=== PATIENT | female | born 1970 | race Caucasian/White ===

== ENCOUNTER 2018-05-04 05:36 | Inpatient (IN) | payer BC ==
[2018-05-02 12:25] LABS: APPEARANCE,URINE CLEAR; BILIRUBIN,URINE NEGATIVE (NEGATIVE); COLOR,URINE YELLOW; GLUCOSE, URINE NEGATIVE (NEGATIVE); KETONES,URINE NEGATIVE (NEGATIVE); LEUKOCYTE ESTERASE,URINE NEGATIVE (NEGATIVE); NITRITE,URINE NEGATIVE (NEGATIVE); PROTEIN,URINE NEGATIVE (NEGATIVE); URINE SPECIFIC GRAVITY 1.011; UROBILINOGEN,URINE NEGATIVE mg/dL (<2.0)
--- NOTE | 2018-05-02 12:28 | RADIOLOGY REPORT (SQ) ---
EXAM DESCRIPTION: CHEST PA/LATERAL COMPLETED DATE/TIME: 05/02/2018 12:19 pm REASON FOR STUDY: PRE-OP COMPARISON: None. EXAM PARAMETERS: NUMBER OF VIEWS: two views TECHNIQUE: Digital Frontal and Lateral radiographic views of the chest acquired. RADIATION DOSE: NA LIMITATIONS: none FINDINGS: LUNGS AND PLEURA: No opacities, masses or pneumothorax. No pleural effusion. Mild biapica l pleural thickening/ scarring. MEDIASTINUM AND HILAR STRUCTURES: No masses or contour abnormalities. HEART AND VASCULAR STRUCTURES: Heart normal size. No evidence for failure. BONES: No acute findings. HARDWARE: None in the chest. OTHER: No other significant finding. IMPRESSION: No evidence of acute cardiopulmonary process. TECHNICAL DOCUMENTATION: JOB ID: [id number] [employer]- All Rights Reserved Reading location - IP/workstation name: [email or web address]
[2018-05-02 12:31] LABS: HEMATOCRIT 45.1 % (36.0-47.0); HEMOGLOBIN 15.4 g/dL (12.0-15.5); MEAN CORPUSCULAR HEMOGLOBIN 31.3 pg (27.0-33.4); MEAN CORPUSCULAR HGB CONC 34.2 g/dL (32.0-36.0); MEAN CORPUSCULAR VOLUME 92 fl (80-97); RED BLOOD COUNT 4.92 10^6/uL (3.72-5.28); RED CELL DISTRIBUTION WIDTH 13.5 % (11.5-14.0)
[2018-05-02 12:55] LABS: ANION GAP 12 (5-19); BLOOD UREA NITROGEN 12 mg/dL (7-20); CALCIUM 9.7 mg/dL (8.4-10.2); CARBON DIOXIDE 31 mmol/L (22-30); CHLORIDE 101 mmol/L (98-107); GLUCOSE 87 mg/dL (75-110); POTASSIUM 4.8 mmol/L (3.6-5.0); SODIUM 144.3 mmol/L (137-145)
[2018-05-02 13:33] LABS: PLATELET COUNT 278 10^3/uL (150-450)
--- NOTE | 2018-05-02 15:54 | EKG REPORT ---
SEVERITY:- BORDERLINE ECG - SINUS RHYTHM BORDERLINE T ABNORMALITIES, ANTERIOR LEADS : Confirmed by: Skip Nolan MD 02-May-2018 15:53:35
[2018-05-03 14:14] LABS: WHITE BLOOD COUNT 4.6 10^3/uL (4.0-10.5)
[2018-05-03 14:17] LABS: PATH REVIEW PATHOLOGIST REVIEWED
[~2018-05-04 05:36] MED LIST: CEFAZOLIN 1 GM/D5W RTU 1 GM/50 ML RTUPB IV ONE; CEFAZOLIN 1 GM/D5W RTU 1 GM/50 ML RTUPB IV PRN; LACTATED RINGERS 1000 ML IV PRN; LIDOCAINE 0.5% INJ-PF (5 MG/ML) 50 ML SDV SUBCUT PRN; RINGERS SOLUTION,LACTATED 1,000 ML IV PRN
[2018-05-04] MEDS ORDERED: HYDROMORPHONE HCL INJ/PF 2 MG/ML AMPULE ONE (06:58)
[2018-05-04] MEDS ORDERED: FENTANYL CITRATE INJ/PF 250 MCG/5 ML AMPULE ONE (06:58)
[2018-05-04] MEDS ORDERED: ACETAMINOPHEN 1,000 MG/100 ML RTUPB IV ONE (06:59)
[2018-05-04] MEDS ORDERED: PROPOFOL INJ 200 MG/20 ML VIAL IV ONE (06:59)
[2018-05-04] MEDS ORDERED: MIDAZOLAM 2 MG/2 ML INJ ONE (06:59)
[2018-05-04] MEDS ORDERED: BUPIVACAINE INJ/PF LIPOSOME/PF 266 MG/20 ML SDV ONE (07:13)
[2018-05-04] MEDS ORDERED: MEPERIDINE HCL/PF INJ 25 MG/1 ML DISP.SYRIN IV PRN (08:01)
[2018-05-04] MEDS ORDERED: DIPHENHYDRAMINE HCL 50 MG/ML VIAL IV PRN (08:01)
[2018-05-04] MEDS ORDERED: MORPHINE SULFATE 10 MG/ML INJ IV PRN (08:01)
[2018-05-04] MEDS ORDERED: FENTANYL CITRATE INJ/PF 100 MCG/2 ML AMPUL IV PRN ×3 (08:01)
[2018-05-04] MEDS ORDERED: PROMETHAZINE HCL INJ 25 MG/1 ML VIAL IV PRN (08:01)
[2018-05-04] MEDS ORDERED: DEXAMETHASONE SOD PHOSPHATE INJ 4 MG/1 ML VIAL ONE (08:52)
[2018-05-04] MEDS ORDERED: GLYCOPYRROLATE 1 MG/5 ML SYRINGE ONE (08:52)
[2018-05-04] MEDS ORDERED: ROCURONIUM BROMIDE INJ 50 MG/5 ML VIAL IV ONE (08:52)
[2018-05-04] MEDS ORDERED: ONDANSETRON HCL INJ/PF 4 MG/2 ML SDV ONE (08:52)
[2018-05-04] MEDS ORDERED: NEOSTIGMINE METHYLSULFATE 10 MG/10 ML VIAL ONE (08:52)
[2018-05-04] MEDS ORDERED: MORPHINE INJ 6 MG DOSE (EDIT ROUTE) INJ PRN (09:00)
[2018-05-04] MEDS ORDERED: PROMETHAZINE HCL INJ 25 MG/1 ML VIAL IM PRN (09:00)
[2018-05-04] MEDS ORDERED: MORPHINE INJ 4 MG DOSE (EDIT ROUTE) INJ PRN (09:00)
[2018-05-04] MEDS ORDERED: MORPHINE INJ 8 MG DOSE IM PRN (09:00)
[2018-05-04] MEDS: FENTANYL CITRATE INJ/PF 100 MCG/2 ML AMPUL ONE ×2 (09:03→09:10)
--- NOTE | 2018-05-04 09:17 | OPERATIVE REPORT E ---
Operative Report NAME: JEANNE PENA : 1970 AGE: 48Y DATE OF SURGERY: 05/04/2018 ROOM: OR PREOPERATIVE DIAGNOSIS: Uterine leiomyoma. POSTOPERATIVE DIAGNOSIS: Uterine leiomyoma. PROCEDURE: Total abdominal hysterectomy with salpingo-oophorectomy. SURGEON: ELSA DAO M.D. COMPLICATIONS: None. ANESTHESIA: General endotracheal. FINDINGS: Approximately an 18-week size uterus, normal left tube and ovary, absent right tube and ovary. INDICATIONS FOR PROCEDURE: The patient has symptomatic uterine leiomyoma and anemia. She recovered with IV iron as an outpatient preoperatively. The usual risks of bleeding, infection, anesthesia, and damage to organs and tissues have been discussed and the patient understood. DESCRIPTION OF PROCEDURE: The patient was taken to the operating room and placed in supine position after adequate anesthesia ascertained. Simons catheter had been inserted, preoperative antibiotics had been given, and surgical timeout performed. Through a midline incision in the subcutaneous fat and fascia, the peritoneum was entered without difficulty and this extended superiorly and inferiorly under direct visualization and care to avoid the bladder inferiorly. The uterus was exteriorized. Abdominal contents packed out of the pelvis and the *------* was identified, crossclamped, cauterized, and held. The bladder flap was developed and reflected inferiorly throughout the case. A LigaSure device was used for surgical cautery down to the level of the uterine vessels, which were crossclamped, cut, suture ligated, and held. Advancement of the cervix proceeded using suture ligation only and the cervix was amputated from the vagina and vagina closed with interrupted #1 Chromic catgut in the usual fashion. Good hemostasis was noted in this aspect of the case. The left tube and ovary were removed separately via electrosurgical cautery and good hemostasis noted. Exparel was used after irrigation of the abdomen and packing removed in the fascia area a total of 20 mL. The skin was approximated with skin gracie. At the completion of the procedure, all sponge and needle counts were correct. The patient was taken to recovery in stable condition. DICTATING PHYSICIAN: ELSA DAO M.D. [id number] PHY#: [id number] ID: [id number] JOB#: [id number] ACCT: [id number] cc:ELSA DAO M.D. >
[2018-05-04] MEDS ORDERED: FENTANYL CITRATE INJ/PF 100 MCG/2 ML AMPUL ONE (09:20)
[2018-05-04] MEDS ORDERED: MORPHINE SULFATE 10 MG/ML INJ ONE (09:21)
[2018-05-04] MEDS ORDERED: HYDROMORPHONE HCL 2 MG TABLET ONE (10:54)
[2018-05-04] MEDS: CEFAZOLIN 1 GM RTU (EDIT START TIME) IV SCH ×2 (11:15→17:01)
[2018-05-04] MEDS: IBUPROFEN 800 MG TABLET PO SCH ×2 (14:07→23:53)
[2018-05-04] MEDS: HYDROMORPHONE HCL 2 MG TABLET PO PRN ×2 (17:01→23:54)
[2018-05-05 05:39] LABS: HEMATOCRIT 35.3 % (36.0-47.0); MEAN CORPUSCULAR HEMOGLOBIN 31.3 pg (27.0-33.4); MEAN CORPUSCULAR HGB CONC 33.8 g/dL (32.0-36.0); MEAN CORPUSCULAR VOLUME 93 fl (80-97); PLATELET COUNT 193 10^3/uL (150-450); RED BLOOD COUNT 3.81 10^6/uL (3.72-5.28); RED CELL DISTRIBUTION WIDTH 13.1 % (11.5-14.0); WHITE BLOOD COUNT 5.4 10^3/uL (4.0-10.5)
[2018-05-05 06:08] LABS: HEMOGLOBIN 11.9 g/dL (12.0-15.5)
[2018-05-05] MEDS: IBUPROFEN 800 MG TABLET PO SCH ×2 (06:49→14:51)
[2018-05-05] MEDS: HYDROMORPHONE HCL 2 MG TABLET PO PRN ×2 (07:03→14:51)
--- NOTE | 2018-05-05 08:51 | DISCHARGE SUMMARY E ---
Discharge Summary NAME: JEANNE PENA : 1970 AGE: 48Y ADMITTED: 05/04/2018 DISCHARGED: 05/05/2018 HISTORY: This is a 48-year-old female admitted for a hysterectomy for symptomatic uterine leiomyoma. The patient with same-day admission [facility]/LSO. ESTIMATED BLOOD LOSS: Approximately 100 mL. COMPLICATIONS: None. PATHOLOGY: Pending. HOSPITAL COURSE: The patient did well, ambulatory, regular diet, no evidence of DVT, discharged within 24 hours. FINAL DIAGNOSIS: Uterine leiomyoma. PROCEDURE: Total abdominal hysterectomy, left salpingo-oophorectomy. DICTATING PHYSICIAN: ELSA DAO M.D. [id number] PHY#: [id number] ID: [id number] JOB#: [id number] ACCT: [id number] cc:ELSA DAO M.D. >
[2018-05-05 09:25] VITALS: BP 112/68
== END 2018-05-05 14:58 | disposition home or self-care (01) | DRG 743 ==
LOC: UNDOADMIN 05:36 → INOR 05:36 → 2S 10:15
PROVIDERS: ADMIT Specialist; ATTEND Specialist
PROC: 0UT10ZZ Resection of Left Ovary, Open Approach (ICD-10-PCS; 2018-05-04)
PROC: 0UT60ZZ Resection of Left Fallopian Tube, Open Approach (ICD-10-PCS; 2018-05-04)
PROC: 0UT90ZZ Resection of Uterus, Open Approach (ICD-10-PCS; principal; 2018-05-04 07:15)
DX: D25.9 Leiomyoma of uterus, unspecified (principal); R10.2 Pelvic and perineal pain; D64.9 Anemia, unspecified; N80.9 Endometriosis, unspecified; Z90.721 Acquired absence of ovaries, unilateral; Z90.79 Acquired absence of other genital organ(s); Z98.51 Tubal ligation status; Z88.5 Allergy status to narcotic agent; Z88.8 Allergy status to other drugs, medicaments and biological substances
CPT/HCPCS: 36415; 71046; 80048; 81001; 81025; 840; 85027; 86850; 86900; 86901; 88307; 93005; 93010; 94799; C9290; J0131; J0690; J1100; J1170; J2250; J2270; J2405; J2704; J3010; J3490; J7120

== ENCOUNTER → 2019-11-21 | Outpatient (CLI) | payer BC, OTHER ==
--- NOTE | 2019-11-21 12:01 | RADIOLOGY REPORT (SQ) ---
EXAM DESCRIPTION: MRI HEAD WITHOUT IMAGES COMPLETED DATE/TIME: 11/21/2019 9:05 am REASON FOR STUDY: G43.709 CHRONIC MIGRAINE W/O AURA, NOT INTRACTABLE, W/O STAT MIGR G43.709 CHRONIC MIGRAINE W/O AURA, NOT INTRACTABLE, W/O STAT COMPARISON: None. TECHNIQUE: Multiplanar imaging includes non-contrasted T1, T2, FLAIR, and diffusion with ADC map seq uences. Images stored on PACS. LIMITATIONS: None. FINDINGS: ANATOMY: No anomalies. Normal vascular flow voids. Pituitary fossa normal. CSF SPACES: Normal in size and contour. No hemorrhage. CEREBRUM: Sulci and gyri normal in size and contour. Scattered punctate foci of T2 prolongation are seen involving predominantly the bifrontal periventricular and subcortical white matter. Caro- white matter differentiation and signal are otherwise normal. . No evidence of hemorrhage, mass, or extr aaxial fluid collection. POSTERIOR FOSSA: No signal alteration. No hemorrhage. No edema, masses or mass effect. Internal adilia tory canals, cerebello-pontine angles, mastoids normal. DIFFUSION IMAGING: Negative for acute or sub-acute infarction. ORBITS: No masses. Globes normal. PARANASAL SINUSES: No fluid levels. Mucosa normal. OTHER: No other significant finding. IMPRESSION: Scattered foci of T2 prolongation seen predominantly within the bilateral frontal lobes are nonspecific, but have been described in the setting of chronic headache syndromes. Otherwise unr emarkable MR appearance of the brain. EVIDENCE OF ACUTE STROKE: NO. TECHNICAL DOCUMENTATION: JOB ID: [id number] [email or web address]- All Rights Reserved Reading location - IP/workstation name: [email or web address]
== END ==
LOC: RAD 08:25
PROVIDERS: ATTEND Specialist
DX: G43.709 Chronic migraine without aura, not intractable, without status migrainosus (principal)
CPT/HCPCS: 70551